=== PATIENT | male | born 1965 | race Hispanic/Latino ===

== ENCOUNTER 2020-05-26 20:00 | Observation (INO) | payer SELFPAY ==
[~2020-05-26] VITALS: Ht 177.8 cm; Wt 100.0 kg
[2020-05-26] MEDS ORDERED: BP MED (20:37)
[2020-05-26 20:54] LABS: HEMATOCRIT 33.6 % (39.0-50.0); HEMOGLOBIN 10.3 g/dl (14.0-18.0); IMMATURE GRANULOCYTES 0.5 % (0.0-5.0); MEAN CELL VOLUME 66.4 fL CALC (80.0-100.0); MEAN CORPUSCULAR HGB 20.4 pG CALC (26.0-32.0); MEAN CORPUSCULAR HGB CONC 30.7 g/dL CAL (32.0-36.0); NEUT# 3.8 thou/uL (1.82-7.42); RED BLOOD COUNT 5.06 mill/uL (4.70-6.10); RED CELL DISTRI WIDTH 20.5 % (11.5-15.5)
[2020-05-26 21:11] LABS: ALKALINE PHOSPHATASE 90 u/l (38-126); BUN 5 mg/dL (9-20); BUN/CREATININE RATIO 7 (12-20 (CALC)); CARBON DIOXIDE 21 mmol/l (22-30); CREATININE 0.8 mg/dL (0.7-1.3); GFR > 60 ML/MIN (>=60 (CALC)); GFR FOR AFR.AMER. > 60 ML/MIN (>=60 (CALC)); POTASSIUM 3.6 mmol/l (3.5-5.1); SGOT/AST 50 u/l (17-59)
[2020-05-26 21:12] LABS: ACT PARTIAL THROMBO TIME 24.1 SECONDS (20.0-32.5); PROTHROMBIN TIME 10.4 SECONDS (9.0-12.5)
[2020-05-26 21:16] LABS: ALBUMIN 4.6 g/dL (3.2-5.0); ANION GAP 15 (6-22 (CALC)); CHLORIDE 90 mmol/l (95-108); SODIUM 122 mmol/l (137-146); TOTAL PROTEIN 8.8 g/dL (6.3-8.2)
[2020-05-26 21:22] LABS: MYOGLOBIN 41 ng/mL (0 - 121)
[2020-05-26 21:26] LABS: D-DIMER 0.17 mg/L (0.19-0.60)
[2020-05-27 01:34] VITALS: BP 151/100
[2020-05-27 03:04] VITALS: BP 141/87
[2020-05-27 03:50] VITALS: BP 129/83
[2020-05-27 06:21] LABS: ANION GAP 14 (6-22 (CALC)); BUN 5 mg/dL (9-20); BUN/CREATININE RATIO 6 (12-20 (CALC)); CARBON DIOXIDE 21 mmol/l (22-30); CHLORIDE 94 mmol/l (95-108); CREATININE 0.8 mg/dL (0.7-1.3); GFR > 60 ML/MIN (>=60 (CALC)); GFR FOR AFR.AMER. > 60 ML/MIN (>=60 (CALC)); HDL CHOLESTEROL 28 mg/dL (>=40); POTASSIUM 3.7 mmol/l (3.5-5.1); SODIUM 125 mmol/l (137-146); TOTAL CHOLESTEROL 169 mg/dl (0-199)
[2020-05-27 06:25] LABS: TOTAL TRIGLYCERIDES > 525 mg/dl (30-149)
[2020-05-27 08:01] VITALS: BP 138/81
[2020-05-27 11:15] VITALS: BP 147/90
[2020-05-27] MEDS ORDERED: TOPROL XL50 MG PO (12:22)
[2020-05-27] MEDS ORDERED: LIBRIUM25 M1 PO (12:24)
[2020-05-27] MEDS ORDERED: TRIGLIDE160 MG PO (12:24)
== END 2020-05-27 14:10 | disposition home or self-care (01) | DRG 313 ==
LOC: ED 20:00 → ED-I 22:07 → ED 22:22 → MS2 22:23
PROVIDERS: Family Medicine; ADMIT Internal Medicine; ATTEND Internal Medicine
DX: R07.9 Chest pain, unspecified (principal); E87.1 Hypo-osmolality and hyponatremia; F10.239 Alcohol dependence with withdrawal, unspecified; I10 Essential (primary) hypertension; F17.200 Nicotine dependence, unspecified, uncomplicated; Z87.11 Personal history of peptic ulcer disease; Z20.822 Contact with and (suspected) exposure to COVID-19
CPT/HCPCS: G0378; J1650